=== PATIENT | male | born 1995 | race Caucasian/White ===

== ENCOUNTER 2022-09-03 06:04 | Emergency (ER) | payer MEDICAID, SELFPAY ==
[2022-09-03 06:19] VITALS: BP 131/76; PULSE 75; RESP 18; TEMP 36.9; O2SAT 98; BMI 21.2
--- NOTE | 2022-09-03 07:32 | ED.DENTAL ---
HPI - Dental/Oral General Chief complaint: Dental/Oral Stated complaint: Cracked top tooth/pain Time Seen by Provider: 09/03/22 07:15 History of Present Illness HPI Narrative: Patient is a 26-year-old male presents today with having toothache since last night. No fever no chills no systemic complaint able to swallow. MD Complaint: tooth pain Teeth map: 1. Pain at tooth 4. Related Data Previous Rx's Medication Instructions Recorded ibuprofen 400 mg tablet 400 mg PO Q6H PRN pain #20 tabs 09/03/22 penicillin V potassium 500 mg 500 mg PO TID 7 days #21 tabs 09/03/22 tablet Allergies Allergy/AdvReac Type Severity Reaction Status Date / Time No Known Allergies Allergy Verified 09/03/22 06:21 Review of Systems Review of Systems: Positive toothache Yes all other systems are reviewed and are negative PMFSH Past Medical History Attestation statement: The following information was validated with the patient. Social History Social History Advance Directives: No Advance Directives Information Provided: No Physical Exam Vital Signs: Vital Signs: Last Vital Signs Temp 98.4 F 09/03/22 06:19 Pulse 75 09/03/22 06:19 Resp 18 09/03/22 06:19 BP 131/76 09/03/22 06:19 Pulse Ox 98 09/03/22 06:19 O2 Del Method 09/03/22 06:19 BMI result Body Mass Index 21.2 Appearance: Alert. Oriented X3. No acute distress. Eyes: Pupils equal, round and reactive to light. ENT: Pharynx normal. Positive cavities noted in tooth # 4. No gross abscess palpable. Neck: Normal inspection. Neck supple. No lymph nodes noted. No crepitus CVS: Normal heart rate and rhythm. Pulses normal. Normal S1 and S2 Respiratory: No respiratory distress. Breath sounds normal. No Wheezing. No rales Abdomen: Soft and nontender. No rigidity. No distention. good BS x4 Skin: Skin warm and dry. Normal skin color. Normal skin turgor. Extremities: No lower extremity edema. Neurovascular intact to all extremities. No Lacerations. No Rash Neuro: Oriented X 3. No motor deficit. No sensory deficit. Moving all extermities. No slurred speech Medical Decision Making Medical Decision Making MDM Narrative: Normal posterior pharynx no difficulty swallowing patient well-appearing lungs are clear. Positive pain to his upper right canine. No abscess palpable. Will start patient on antibiotic and pain medication. Follow-up with Dentistry on an outpatient basis. Differential Diagnosis Dental abscess, deep pharyngitis, peritonsillar abscess, cavity Independent Historian Clinical information obtained from an independent historian. History obtained from or confirmed by: Friend Prescription Management I considered prescription management with: Pain Medication and Antibiotic Discharge Plan Discharge Clinical Impression: Toothache Patient Disposition: Home, Self-Care Instructions: Toothache (ED) Prescriptions: New ibuprofen 400 mg tablet 400 mg PO Q6H PRN (Reason: pain) Qty: 20 0RF penicillin V potassium 500 mg tablet 500 mg PO TID 7 Days Qty: 21 0RF Referrals: [facility] [Primary Care Provider] - (Please follow with Dentistry at [facility])
[2022-09-03] MEDS: Penicillin V Potassium 250 MG TABLET 500 MG PO (07:56)
[2022-09-03] MEDS: Ibuprofen 400 MG TABLET PO (07:56)
== END 2022-09-03 08:01 | disposition home or self-care (01) ==
PROVIDERS: Emergency Provider Emergency Medicine Emergency Medical Services
DX: K08.89 Other specified disorders of teeth and supporting structures (principal)
CPT/HCPCS: 99283; 99284

== ENCOUNTER 2025-03-16 11:26 | Outpatient (REF) | payer MEDICAID, SELFPAY ==
--- OUTSIDE RECORDS SUMMARY | 2025-03-16 11:00 | XMS_ITS | Encounter Summary ---
Author Organization [employer] Address [address] [place] [address] Care Team Providers Care District Plant Engineer Name Role Phone Unavailable Primary Care Provider Unavailabl e Encounter Details Date Type Department Care Team (Late st Contact Info) Description 03/16/2025 11:00 AM EDT Office Visit [facility] [address] [place] [address] Possible exposure to STI (Primary Dx); Healthcare maintenance Social History Tobacco Use Types Packs/Day Years Used Date Smoking Tobacco: Never Assessed Sex and Gender Information Value Date Recorded Sex Assigned at Male 04/28/2022 10:20 AM EDT Legal Sex Male 10:20 AM EDT Gender Identity Choose not to disclose 10:20 AM EDT Sexual Orientation Choose not to disclose 2021 10:20 AM EDT documented as of this encounter Last Filed Vital Signs Vital Sign Reading Time Taken Comments Blood Pressure 125/74 03/16/2025 11:09 AM EDT Pulse 74 03/16/2025 11:09 AM EDT Temperature 36.1 C (96.9 F) 03/16/2025 11:09 AM EDT Respiratory Rate 18 03/16/2025 11:09 AM EDT Oxygen Saturation - - Inhaled Oxygen Concentration - - Weight 75.9 kg (167 lb 6.4 oz) 03/16/2025 11:09 AM EDT Height - - Body Mass Index - - documented in this encounter Plan of Treatment Scheduled Orders Name Type Priority Associated Diagnoses Orde r Schedule Chlamydia/Trichomonas/Nei sseria gonorrhoeae, PCR, Urine Lab Routine Possible Exposure To Sti Ordered: 03/16/2025 T4, Free Lab Routine Possible Exposure To Sti Healthcare maintenance Expected: 03/16/2025 (Approximate), Expires: 03/16/2026 Lipid Panel, Standard Lab Routine Possible Exposure To Sti Healthcare maintenance Expected: 03/16/2025 (Approximate), Expires: 03/16/2026 TSH Lab Routine Possible Exposure To Sti Healthcare maintenance Expected: 03/16/2025 (Approximate), Expires: 03/16/2026 Vitamin D, 25-Hydroxy, Total, Immunoassay Lab Routine Possible Exposure To Sti Healthcare maintenance Expected: 03/16/2025 (Approximate), Expires: 03/16/2026 Hepatic Function Panel Lab Routine Possible Exposure To Sti Healthcare maintenance Expected: 03/16/2025 (Approximate), Expires: 03/16/2026 Hemoglobin A1c Lab Routine Possible Exposure To Sti Healthcare maintenance Expected: 03/16/2025 (Approximate), Expires: 03/16/2026 CBC Lab Routine Possible Exposure To Sti Healthcare maintenance Expected: 03/16/2025, Expires: 03/16/2026 Basic Metabolic Panel Lab Routine Possible Exposure To Sti Healthcare maintenance Expected: 03/16/2025 (Approximate), Expires: 03/16/2026 Hepatitis B surface antigen, EIA Lab Routine Possible Exposure To Sti Healthcare maintenance Expected: 03/16/2025 (Approximate), Expires: 03/16/2026 HIV-1/2 Antigen and Antibodies, Fourth Generation, with Reflexes Lab Routine Possible exposure to STI Healthcare maintenance Expected: 03/16/2025 (Approximate), Expires: 03/16/2026 Hepatitis C Antibody with Reflex to HCV, RNA, Quantitative, Real-Time PCR Lab Routine Possible exposure to STI Healthcare maintenance Expected: 03/16/2025, Expires: 03/16/2026 RPR (Monitor) with Reflex to Titer Lab Routine Possible exposure to STI Healthcare maintenance Expected: 03/16/2025, Expires: 03/16/2026 Hepatitis B Surface Antibody, Qualitative Lab Routine Possible exposure to STI Healthcare maintenance Expected: 03/16/2025 (Approximate), Expires: 03/16/2026 Hepatitis A Antibody, Total Lab Routine Possible exposure to STI Healthcare maintenance Expected: 03/16/2025 (Approximate), Expires: 03/16/2026 Hepatitis B Core Antibody, Total Lab Routine Possible exposure to STI Healthcare maintenance Expected: 03/16/2025 (Approximate), Expires: 03/16/2026 T-SPOT .TB Lab Routine Possible exposure to STI Healthcare maintenance Expected: 03/16/2025 (Approximate), Expires: 03/16/2026 documented as of this encounter Visit Diagnoses Diagnosis Possible exposure to STI- Primary Healthcare maintenance documented in this encounter
[2025-03-16 13:13] LABS: Hematocrit 45.8 % (42.0-52.0); Hemoglobin 16.1 g/dl (14.0-18.0); Mean Corpuscular HGB Conc 35.2 g/dl (31.0-36.0); Mean Corpuscular Hemoglobin 31.1 pg (27.0-33.0); Mean Corpuscular Volume 88.4 fL (80.0-98.0); NRBC Abs Auto 0.000 X10*3/uL (0.0-0.012); NRBC Pct Auto 0.0 /100WBC (0.0-0.2); Platelet Count 200 X10*3/uL (160-400); Red Blood Count 5.18 X10*6/uL (4.60-5.80); White Blood Count 6.2 X10*3/uL (4.8-10.8)
[2025-03-16 13:20] LABS: Hemoglobin A1C 144.9784 umol/L; Total Hemoglobin (HGBA1C) 4217.8003 umol/L
[2025-03-16 13:43] LABS: Alanine Aminotransferase 52 U/L (0-40); Albumin Level 4.8 g/dL (3.5-5.0); Alkaline Phosphatase 89 U/L (39-117); Anion Gap 10 (12-20); Aspartate Amino Transferase 34 U/L (5-37); Blood Urea Nitrogen 12 mg/dL (9-16); Calcium 9.7 mg/dL (8.4-10.2); Carbon Dioxide 30 mmol/L (22-29); Chloride 105 mmol/L (96-108); Cholesterol 129 mg/dL (<200); Estimated Glomerular Filt Rate > 60; HDL Cholesterol 31 mg/dL (>40); Potassium 4.1 mmol/L (3.3-5.1); Sodium 141 mmol/L (135-145); Total Protein 7.5 g/dL (6.5-8.0); Triglycerides 95 mg/dL (<150)
--- OUTSIDE RECORDS SUMMARY | 2025-03-16 13:50 | XMS_ITS | Clinical Summary ---
[facility] Address [address] [place] [address] Care Team Providers Care Sales And Marketing Intern Name Role Phone Unavailable Primary Care Provider Unavailabl e Social History Tobacco Use Types Packs/Day Years Used Date Smoking Tobacco: Never Assessed Sex and Gender Information Value Date Recorded Sex Assigned at Not on file Legal Sex Male 1:38 PM EDT Gender Identity Not on file Sexual Orientation Not on file Plan of Treatment Health Maintenance Due Date Last Done Comments DTaP,Tdap,and Td Vaccines (1 - Tdap) 2016 Hepatitis B Vaccines (1 of 3 - 19+ 3-dose series) 2016 HIV Screening 01/20/2024 Hepatitis C Screening 01/20/2024 Social Influencers of Health Screening 01/20/2024 Depression Screening 06/29/2024 COVID-19 Vaccine (1 - 2023-2 5 season) 2025 Influenza Vaccine (#1) 2025 RSV Immunization Adult Patie nts (1 - 1-dose 75+ series) 2072 HIB Vaccines Aged Out No longer eligi ble based on patient's age to complete this topic HPV Vaccines Aged Out No longer eligi ble based on patient's age to complete this topic Hepatitis A Vaccines Aged Out No long er eligible based on patient's age to complete this topic IPV Vaccines Aged Out No longer eligi ble based on patient's age to complete this topic MMR Vaccines Aged Out No longer eligi ble based on patient's age to complete this topic Meningococcal ACWY Vaccine Aged Out N o longer eligible based on patient's age to complete this topic Meningococcal B Vaccine Aged Out No l onger eligible based on patient's age to complete this topic Pneumococcal Vaccine: Pediat rics (0 to 5 Years) and At-Risk Patients (6 to 49 Years) Aged Out No longer eligible b ased on patient's age to complete this topic RSV Immunization Patients Un francisco javier 20 months Aged Out No longer eligible b ased on patient's age to complete this topic Varicella Vaccines Aged Out No longer eligible based on patient's age to complete this topic
--- OUTSIDE RECORDS SUMMARY | 2025-03-16 13:50 | XMS_ITS | Clinical Summary ---
Author Organization [employer] Address [address] [place] [address] Care Team Providers Care Bilingual Speech Language Pathologist Name Role Phone Unavailable Primary Care Provider Unavailabl e Allergies No known active allergies Medications metroNIDAZOLE (Flagyl) 500 MG tablet Take 4 tablets (2,000 mg) by mouth 1 (one) time for 1 dose. 4 tablet 03/16/2025 5 Active Encounters Date Type Department Care Team Description 03/16/2025 11:00 AM EDT Office Visit [facility] [address] [place] [id number] Possible exposure to STI (Primary Dx); Healthcare maintenance 03/16/2025 Travel 03/10/[address] [facility] [address] [place] [phone] Caleb Quiroz MD Appointment Request from Last 3 Months Social History Tobacco Use Types Packs/Day Years Used Date Smoking Tobacco: Never Assessed Sex and Gender Information Value Date Recorded Sex Assigned at Male 04/28/2022 10:20 AM EDT Legal Sex Male 10:20 AM EDT Gender Identity Choose not to disclose 10:20 AM EDT Sexual Orientation Choose not to disclose 2021 10:20 AM EDT Last Filed Vital Signs Vital Sign Reading [...] - - Body Mass Index - - Plan of Treatment Health Maintenance Due Date Last Done Comments Depression Screening 1997 HIV Screening 1997 SDOH Screening 1997 Disability Screening 1997 Alcohol/Substance Use Screening 2009 Tobacco Screening 2009 Family Planning (PISQ) 2012 HPV Vaccines (1 - 3-dose series) 2012 Hepatitis C Screening 10/20/2015 DTaP/Tdap/Td Vaccines (1 - Tdap) 2016 Hepatitis B Vaccines (1 of 3 - 19+ 3-dose series) 2016 COVID-19 Vaccine (1 - 2023-2 5 season) 2025 Influenza Vaccine (#1) 2025 Zoster Vaccines (1 of 2) 10/20/2047 RSV Patients and Pa tients Aged 60 years or older (1 - 1-dose 75+ series) 2072 HIB [...] patient's age to complete this topic Meningococcal Vaccine Aged Out No bam juliet eligible based on patient's age to complete this topic Pneumococcal Vaccine: Pediat rics (0 to 5 Years) and At-Risk Patients (6 to 49) Years Aged Out No longer eligible b ased on patient's age to complete this topic RSV under 20 months Aged Out No longe r eligible based on patient's age to complete this topic Rotavirus Vaccines Aged Out No longer eligible based on patient's age to complete this topic Insurance [employer]
--- OUTSIDE RECORDS SUMMARY | 2025-03-16 13:50 | XMS_ITS | Encounter Summary ---
Author Organization [employer] Address [address] [place] [address] Care Team Providers Care Automatic Grinding Machine Operator Name Role Phone Unavailable Primary Care Provider Unavailabl e Encounter Details Date Type Department Care Team (Latest Contact Info) Description 03/16/2025 Travel Social History Tobacco Use Types Packs/Day Years Used Date Smoking Tobacco: Never Assessed Sex and Gender Information Value Date Recorded Sex Assigned at Male 04/28/2022 10:20 AM EDT Legal Sex Male 10:20 AM EDT Gender Identity Choose not to disclose 10:20 AM EDT Sexual Orientation Choose not to disclose 2021 10:20 AM EDT documented as of this encounter Plan of Treatment Not on file documented as of this encounter Visit Diagnoses Not on filedocumented in this encounter
[2025-03-16 13:52] LABS: Free T4 (Free Thyroxine) 1.03 ng/dL (0.71-1.85); Thyroid Stimulating Hormone 0.79 uIU/mL (0.32-4.0)
[2025-03-17 03:07] LABS: CT PCR Urine NOT DETECTED (Not Detect.); NG PCR Urine NOT DETECTED (Not Detect.)
[2025-03-17 08:33] LABS: HBS Num1 0.73 mIU/mL (0-7.99); HBc Num1 0.05 S/CO (0.00-0.79); HBsAGNum1 0.45 S/CO (0.00-0.99); HIV Num 1 0.06 S/CO (0.00-0.99); Hepatitis B Surface Antigen Negative (Negative); ~HepC Num1 0.14 S/CO (0.00-0.79); ~Hepatitis B Surface Antibody NONREACTIVE (Nonreactive); ~Hepatitis C Antibody Nonreactive (Nonreactive)
[2025-03-17 09:36] LABS: ~Hepatitis A Antibody IgG 8.63 S/CO (0.00-0.99)
== END 2025-03-16 11:27 | disposition home or self-care (01) ==
LOC: HO.HHCL 11:26
PROVIDERS: PCP Family Medicine; Visit Provider Family Medicine
DX: Z00.00 Encounter for general adult medical examination without abnormal findings (principal); Z11.4 Encounter for screening for human immunodeficiency virus [HIV]; Z20.2 Contact with and (suspected) exposure to infections with a predominantly sexual mode of transmission
CPT/HCPCS: 36415; 80048; 80061; 80076; 82306; 83036; 84439; 84443; 85027; 86481; 86592; 86704; 86706; 86708; 86803; 87340; 87389; 87491; 87591; 87661